=== PATIENT | male | born 1960 | race Caucasian/White ===

== ENCOUNTER 2017-01-13 23:59 | Emergency (ER) | payer OTHER ==
--- NOTE | ~2017-01-13 | CR72 ---
[facility] A Service of [facility] RADIOLOGY TEXT RESULTS PATIENT: LANDON ZHU LOCATION: [facility] : 60 UNIT #: [id number] AGE: [address]: Nan El APRN SEX: M ORDER DR: [id number] [facility] [address] [place], [place] [address] [id number] E MR#: [id number] Acc #: [id number] NAME: LANDON ZHU : 1960 SEX: M STUDY DATE/TIME: 01/14/2017 01:23 UNIT: [facility] ROOM: STUDY DESCRIPTION: CR Chest Single View Portable Attending Physician: Nan El A.P.R.N. Ordering Physician: Nan El A.P.R.N. Primary Care Physician: Bryant Car M.D. MEDICAL IMAGING REPORT This report is preliminary unless electronic signature is present EXAM Portable chest 01/14 at 01:23 INDICATIONS Cough, shortness of air and chest pain for about 1 week. History of hypertension. FINDINGS AP portable chest x-ray is compared with 09/19/2015. Cardiac and mediastinal contours are normal. Patient is status post CABG. Lungs are clear except for granulomatous calcifications. No pneumothorax. IMPRESSION No active disease. Patient is status post CABG. Dictated by... Drake Echols Jr., M.D. THIS IS AN ELECTRONICALLY VERIFIED REPORT Drake Echols Jr., M.D. at 01/14/2017 5:24 AM KANDACE/mary ann TD: 01/14/2017 05:21 JOB #: [id number] MEDICAL IMAGING REPORT Page 1 of 1 COPY
--- NOTE | ~2017-01-13 | EKG ---
PATIENT: LANDON ZHU UNIT #: [id number] Ventricular Rate: 94 BPM Atrial Rate: 94 BPM P-R Interval: 140 ms QRS Duration: 104 ms Q-T Interval: 394 ms QTC Calculation(Bezet): 492 ms P [place]: 51 degrees Calculated R [place]: 46 degrees Calculated T [place]: 49 degrees Diagnosis Line: Sinus rhythm with occasional Premature ventricular Diagnosis Line: complexes Diagnosis Line: Incomplete right bundle branch block Diagnosis Line: Prolonged QT Diagnosis Line: Abnormal ECG Diagnosis Line: When compared with ECG of 01-APR-2015 15:15, Diagnosis Line: Premature ventricular complexes are now Present Diagnosis Line: Vent. rate has increased BY 31 BPM Diagnosis Line: QT has lengthened Diagnosis Line: Confirmed by MICHAEL BINGHAM MD ([id number]) on 01/14/2017 Diagnosis Line: 4:43:21 PM INTERPRETING MD: ZACHERY MOHAN
[~2017-01-13 23:59] MED LIST: ALBUTEROL17 GM INH; ALPRAZOLAM PO; ALPRAZOLAM0.5 MG PO; ASPIRIN EC81 M1 PO; ASPIRIN81 M1 PO; ASPIRIN81 MG PO; AZITHROMYCIN250 MG PO; B-100 COMPLEX1 TAB PO; CATAPRES0.1 MG PO; CELEXA20 MG PO; CHANTIX1 DOSE-PAC; CHEWABLE ASPIRI81 MG PO; CLOBETASOL E 0.60 GM TOP; CLONIDINE PO; CLOPIDOGREL BIS75 MG PO; DOXYCYCLINE150 MG PO; DULERA 200 MCG/13 GM IH; ECOTRIN81 M1 PO; FENOFIBRATE160 MG PO; FLEXERIL PO; FLEXERIL10 MG PO; FOLIC ACID800 MCG DOB; FOLIC ACID800 MCG PO; FUROSEMIDE40 MG PO; GLUCOPHAGE500 MG; GLUCOPHAGE500 MG PO; HYDROCODON-ACE1 EAC4 PO; HYDROCODON-ACE1 EAC5 PO; HYDROCODONE-A1 UDTA3 PO; IBUPROFEN PO; IMDUR-ER30 M1 PO; K-DUR20 ME1 PO; KCL PO; KEFLEX PO; KLONOPIN0.5 MG PO; KLONOPIN1 MG PO; LASIX PO; LEVAQUIN PO; LISINOPRIL10 MG PO; LORTAB 10-5001 EACH PO; LORTAB 7.5-5001 TAB PO; LYRICA50 MG PO; MEDROL PO; MEDROL4 MG/DOSE- PO; METOPROLOL SUC100 MG PO; METOPROLOL SUCC50 MG PO; NAPROSYN500 MG PO; NEURONTIN100 MG PO; NORCO 5/325 TAB1 TAB PO; NORVASC PO; OMEPRAZOLE20 M2 PO; PANTOPRAZOLE SO40 MG PO; PHENERGAN W/CO120 ML PO; PLAVIX PO; PREDNISONE PO; PREDNISONE10 MG PO; PRILOSEC20 M1 PO; PRILOSEC20 MG PO; RONDEC PO; SIMVASTATIN20 MG PO; SPIRIVA18 MCG INH; SYMBICORT INH; TOPROL XL 50 MG50 M1 PO; TOPROL XL100 MG PO; TOPROL XL50 MG PO; TRIAMCINOLONE A15 G2 EXT; TRIGLIDE160 M1 PO; ULTRAM PO; VICODIN 5/500 T1 TAB PO; VITAMIN D5000 UNIT PO; VITAMIN D50000 UNIT PO; VOLTAREN75 MG PO; WELLBUTRIN SR PO; XANAX0.5 M1 PO; XANAX0.5 MG PO; ZESTORETIC 20-1 EAC1 PO; ZITHROMAX PO; ZOCOR20 MG PO
[2017-01-14 01:30] LABS: BASOPHIL# 0.1 X10e3 (0-0.3); BASOPHIL% 0.8 % (0-2.5); EOSINOPHIL# 0.1 X10e3 (0-0.7); EOSINOPHIL% 1.6 % (0.0-7.0); HEMATOCRIT 44.2 % (38.0-50.0); HEMOGLOBIN 14.9 gm/dL (13.0-16.0); LYMPHOCYTE# 2.4 X10e3 (1.0-3.5); LYMPHOCYTE% 26.8 % (17.0-45.0); MEAN CELL VOLUME 96.3 FL (83-96); MEAN CORPUSCULAR HEMOGLOBIN 32.5 PG (28-34); MEAN CORPUSCULAR HGB CONC 33.7 g/dL (30-36); MEAN PLATELET VOLUME 7.9 FL (6.5-11.5); MONOCYTE# 0.8 X10e3 (0-1.0); MONOCYTE% 8.3 % (3.0-12.0); NEUTROPHIL# 5.6 X10e3 (1.5-7.1); NEUTROPHIL% 62.5 % (40-75); PLATELET COUNT 182 X10e3 (140-420); RED BLOOD COUNT 4.59 X10e (3.90-5.60); RED CELL DISTRIBUTION WIDTH 13.1 % (11.0-15.5)
[2017-01-14 01:31] LABS: DIFF IND NO
[2017-01-14 01:36] LABS: INFLUENZA A NEG (NEG); INFLUENZA B NEG (NEG)
[2017-01-14 01:46] LABS: PROTHROMBIN TIME (PATIENT) 10.6 SECONDS (9.6-11.5)
[2017-01-14 01:52] LABS: POC - CKMB 1.1 ng/mL (0.0-7.9); POC - TROPONIN <0.05 ng/mL (<=0.05)
[2017-01-14 02:00] LABS: ALBUMIN SERUM 4.1 g/dL (3.5-5.0); BILIRUBIN, DIRECT 0.1 mg/dL (0.0-0.2); BILIRUBIN,INDIRECT 0.7 mg/dL (0.0-0.9); BILIRUBIN,TOTAL 0.8 mg/dL (0.2-2.0); BUN/CREATININE RATIO 17.5; CALCIUM SERUM 8.9 mg/dL (8.4-10.2); CREATININE SERUM 0.8 mg/dL (0.6-1.4); GLOM FILT RATE Estimated 99.9 mL/min (>60); POTASSIUM 3.4 mmol/L (3.5-5.1); PROTEIN TOTAL SERUM 6.9 g/dL (6.0-8.3)
[2017-01-14 02:08] LABS: URINE SOURCE CLEAN CATCH
[2017-01-14 02:30] LABS: URINE APPEARANCE CLEAR; URINE BILIRUBIN NEG (NEG); URINE BLOOD NEG (NEG); URINE COLOR YELLOW; URINE GLUCOSE NEG (NEG); URINE KETONE NEG (NEG); URINE LEUKOCYTE ESTERASE NEG (NEG); URINE NITRATE NEG (NEG); URINE PROTEIN NEG (NEG); URINE SPECIFIC GRAVITY 1.009 (1.003-1.035); URINE UROBILINOGEN 0.2 MG/DL (NEG)
[2017-01-14 02:40] LABS: CULTURE INDICATED? NO
[2017-01-14 03:18] LABS: POC - CKMB 1.4 ng/mL (0.0-7.9); POC - TROPONIN <0.05 ng/mL (<=0.05)
== END 2017-01-14 05:07 | disposition home or self-care (01) ==
LOC: CED 23:59
PROVIDERS: Nurse Practitioner
DX: J44.9 Chronic obstructive pulmonary disease, unspecified (principal); I10 Essential (primary) hypertension; E11.9 Type 2 diabetes mellitus without complications; I25.2 Old myocardial infarction; F17.210 Nicotine dependence, cigarettes, uncomplicated; Z79.899 Other long term (current) drug therapy
CPT/HCPCS: 36415; 71010; 80048; 80076; 81003; 82150; 82553; 83690; 84484; 85025; 85610; 85730; 87651; 87804; 93005; 94640; 96374; 99284; J2405

== ENCOUNTER 2017-01-27 03:31 | Emergency (ER) | payer OTHER ==
--- NOTE | ~2017-01-27 | EKG ---
PATIENT: LANDON ZHU UNIT #: [id number] Ventricular Rate: 89 BPM Atrial Rate: 89 BPM P-R Interval: 138 ms QRS Duration: 94 ms Q-T Interval: 390 ms QTC Calculation(Bezet): 474 ms P [place]: 56 degrees Calculated R [place]: 51 degrees Calculated T [place]: 49 degrees Diagnosis Line: Normal sinus rhythm Diagnosis Line: Incomplete right bundle branch block Diagnosis Line: Borderline ECG Diagnosis Line: No previous ECGs available Diagnosis Line: Confirmed by MICHAEL BINGHAM MD ([id number]) on 01/27/2017 Diagnosis Line: 6:31:31 PM INTERPRETING MD: ZACHERY MOHAN
--- NOTE | ~2017-01-27 | CR63 ---
[facility] A Service of [facility] RADIOLOGY TEXT RESULTS PATIENT: LANDON ZHU LOCATION: [facility] : 60 UNIT #: [id number] AGE: [address]: LIS SHARPE SEX: M ORDER DR: [id number] [facility] [address] [place], [place] [address] [id number] E MR#: [id number] Acc #: [id number] NAME: LANDON ZHU : 1960 SEX: M STUDY DATE/TIME: 01/27/2017 2:43 UNIT: [facility] ROOM: STUDY DESCRIPTION: CR Chest 2 View Attending Physician: Lis Sharpe Aprn Ordering Physician: Lis Sharpe Aprn Primary Care Physician: Bryant Car M.D. MEDICAL IMAGING REPORT This report is preliminary unless electronic signature is present EXAM Chest x-ray 01/27/2017. HISTORY 56-year-old male in the ED complaining of chest pain and shortness of air beginning earlier today. TECHNIQUE AP and lateral upright chest series. FINDINGS Heart size and pulmonary vascularity are normal. Postop changes CABG. The lungs are clear. No visible pulmonary infiltrate or pleural effusion. Scattered benign calcified pulmonary granulomas. No change since 01/14/2017. IMPRESSION No active disease. CABG. No change since 01/14/2017. Dictated by... Gildardo Dow M.D. THIS IS AN ELECTRONICALLY VERIFIED REPORT Gildardo Dow M.D. at 01/27/2017 5:57 AM MARGARITA/mary ann TD: 01/27/2017 03:36 JOB #: [id number] MEDICAL IMAGING REPORT Page 1 of 1 COPY
[2017-01-27 02:51] LABS: BASOPHIL# 0.1 X10e3 (0-0.3); BASOPHIL% 0.7 % (0-2.5); EOSINOPHIL# 0.2 X10e3 (0-0.7); EOSINOPHIL% 1.9 % (0.0-7.0); HEMATOCRIT 43.9 % (38.0-50.0); HEMOGLOBIN 14.9 gm/dL (13.0-16.0); LYMPHOCYTE# 2.6 X10e3 (1.0-3.5); LYMPHOCYTE% 26.7 % (17.0-45.0); MEAN CELL VOLUME 95.5 FL (83-96); MEAN CORPUSCULAR HEMOGLOBIN 32.5 PG (28-34); MEAN PLATELET VOLUME 7.9 FL (6.5-11.5); MONOCYTE# 0.8 X10e3 (0-1.0); MONOCYTE% 7.9 % (3.0-12.0); NEUTROPHIL# 6.1 X10e3 (1.5-7.1); NEUTROPHIL% 62.8 % (40-75); PLATELET COUNT 173 X10e3 (140-420); WHITE BLOOD COUNT 9.7 X10e3 (4.0-10.5)
[2017-01-27 02:52] LABS: DIFF IND NO
[2017-01-27 03:05] LABS: PARTIAL THROMBOPLASTIN TIME 26.9 SECONDS (23.5-31.3); PROTHROMBIN TIME (PATIENT) 10.7 SECONDS (9.6-11.5)
[2017-01-27 03:13] LABS: POC - TROPONIN <0.05 ng/mL (<=0.05)
[2017-01-27 03:19] LABS: ALBUMIN SERUM 4.3 g/dL (3.5-5.0); BILIRUBIN,TOTAL 0.5 mg/dL (0.2-2.0); BUN/CREATININE RATIO 16.25; CALCIUM SERUM 8.8 mg/dL (8.4-10.2); CREATININE SERUM 0.8 mg/dL (0.6-1.4); GLOM FILT RATE Estimated 99.9 mL/min (>60); POTASSIUM 3.6 mmol/L (3.5-5.1); PROTEIN TOTAL SERUM 6.8 g/dL (6.0-8.3)
== END 2017-01-27 04:28 | disposition home or self-care (01) ==
LOC: CED 03:31
PROVIDERS: Nurse Practitioner Family
DX: R07.89 Other chest pain (principal); I10 Essential (primary) hypertension; E78.5 Hyperlipidemia, unspecified; J45.909 Unspecified asthma, uncomplicated; F17.210 Nicotine dependence, cigarettes, uncomplicated; Z95.1 Presence of aortocoronary bypass graft; Z79.899 Other long term (current) drug therapy; Z79.82 Long term (current) use of aspirin
CPT/HCPCS: 36415; 71020; 80053; 82553; 84484; 85025; 85610; 85730; 93005; 94640; 96374; 96375; 99284; J1885; J2405

== ENCOUNTER 2017-01-29 23:59 | Observation (INO) | payer OTHER ==
--- NOTE | ~2017-01-29 | CT15 ---
[facility] A Service of [facility] & [facility] RADIOLOGY TEXT RESULTS PATIENT: LANDON ZHU LOCATION: [facility] 549-01 : 60 UNIT #: [id number] AGE: [address]: Terry Ashley MD SEX: M ORDER DR: [id number] [facility] [address]. [place], [place] [address] [id number] I MR#: [id number] Acc #: [id number] NAME: LANDON ZHU : 1960 SEX: M STUDY DATE/TIME: 01/30/2017 12:43 UNIT: [facility] ROOM: [facility] STUDY DESCRIPTION: CT Angio Chest Attending Physician: Terry Ashley M.D. Ordering Physician: Dashawn Hoyt M.D. Primary Care Physician: Bryant Car M.D. MEDICAL IMAGING REPORT This report is preliminary unless electronic signature is present EXAM CT angiography chest 01/30/2017 HISTORY Hypertension, diabetes. Prior history stroke, TIA. Left-sided chest pain for 6 days. Evaluate aorta. COMPARISON STUDIES CT angiogram of the chest dated 11/14/2013. TECHNIQUE Patient received 100 mL Isovue-370 today. Multiple 3-D reconstructions performed through the aorta. This CT exam was performed with one or more of the following radiation dose reduction techniques: automatic exposure control, adjustment of mA and/or kV according to patient size, and iterative reconstruction. FINDINGS Thyroid unremarkable. Mild bilateral symmetric gynecomastia, stable. No axillary, mediastinal or hilar adenopathy. Status post median sternotomy and CABG. Heart normal in size. No pleural effusions. Please see yesterday's dedicated CT abdomen and pelvis for full discussion of findings below diaphragm. Visualized portions of liver notable for small hypodense focus in segment 5 of the liver, most likely small hepatic cysts. More conspicuous than on a study of October 2014 but present on prior study. No suspicious hepatic parenchymal abnormality is seen. The gallbladder, spleen, pancreas, adrenal glands and kidneys unremarkable in visualized extent. The esophagus, stomach, visualized small bowel and colon are unremarkable. The pulmonary parenchyma shows centrilobular emphysema. Multiple calcified granulomata. Linear scarring medial segment right middle lobe. Mild bronchial wall prominence in the STS. [facility] A Service of [facility] & [facility] RADIOLOGY TEXT RESULTS PATIENT: LANDON ZHU LOCATION: [facility] 549-01 : 60 UNIT #: [id number] AGE: [address]: Terry Ashley MD SEX: M ORDER DR: bilateral lower lobes, similar or slightly less pronounced than on prior examination, probably reflecting components of chronic underlying bronchitis. No suspicious nodule. No evidence of pneumonia or pulmonary edema. The bony structures show no acute bony abnormality. VASCULAR ANATOMY: This examination was not tailored for assessment of the pulmonary arteries. Pulmonary arteries are relatively well opacified and there is no indication of pulmonary thromboembolic disease. The aorta is normal in caliber. No dissection. The great vessel origins are patent. Proximal vertebral and common carotid arteries unremarkable. The celiac axis is patent. There is moderate narrowing of the proximal superior mesenteric artery due to eccentric atherosclerotic plaque. Narrowing is on the order of approximately 44%. Given differences in CT technique, this is probably not significantly changed from 2014. There appear to be single renal arteries bilaterally. Mild atherosclerotic luminal narrowing in the proximal right renal artery. Visualized left renal artery unremarkable. IMPRESSION 1. No aortic aneurysm or dissection. Visualized aortic branch vessels are patent. Moderate, approximately 44% luminal narrowing in proximal superior mesenteric artery secondary to eccentric atherosclerotic plaque. Similar appearance in 2014. 2. Although the study was not tailored for assessment of the pulmonary arteries. Pulmonary arteries are well opacified and there is no indication of pulmonary thromboembolic disease. 3. Status post median sternotomy and CABG. 4. Underlying centrilobular emphysema. Mild bronchial wall prominence in the utt-li-csrdl lung zones, likely reflecting components of chronic bronchitis. 5. Calcified granulomata. No suspicious nodule. 6. No acute-appearing abnormality in the upper abdomen. See details above. See yesterday's dedicated CT abdomen and pelvis for further assessment of findings below diaphragm. Dictated by... Richie Fishman M.D. THIS IS AN ELECTRONICALLY VERIFIED REPORT Richie Fishman M.D. at 01/31/2017 10:49 PM PEDRO/dominick TD: 01/30/2017 22:14 JOB #: [id number] MEDICAL IMAGING REPORT Page 1 of 1 COPY
--- NOTE | ~2017-01-29 | CR72 ---
[facility] A Service of [facility] & [facility] RADIOLOGY TEXT RESULTS PATIENT: LANDON ZHU LOCATION: [facility] : 60 UNIT #: [id number] AGE: [address]: Irma Prater MD SEX: M ORDER DR: [id number] [facility] [address] [place], [place] [address] [id number] I MR#: [id number] Acc #: [id number] NAME: LANDON ZHU : 1960 SEX: M STUDY DATE/TIME: 01/29/2017 22:43 UNIT: [facility] ROOM: 09400 STUDY DESCRIPTION: CR Chest Single View Portable Attending Physician: Irma Prater M.D. Ordering Physician: Dashawn Hoyt M.D. Primary Care Physician: Bryant Car M.D. MEDICAL IMAGING REPORT This report is preliminary unless electronic signature is present EXAM AP portable chest, 01/29/2017 HISTORY 56-year-old male in the ED complaining of 2-day history of left side chest pain, shortness of air and nausea. Past history of CABG surgery. TECHNIQUE AP portable upright chest x-ray. FINDINGS No active disease. Postop CABG. Heart size and pulmonary vascularity are normal. The lungs are clear. No visible pulmonary infiltrate or pleural effusion. Benign calcified granulomas in the right upper lung. No change since 01/27/2017. IMPRESSION No active disease. CABG. Dictated by... Gildardo Dow M.D. THIS IS AN ELECTRONICALLY VERIFIED REPORT Gildardo Dow M.D. at 01/30/2017 6:01 AM MARGARITA/alisha TD: 01/30/2017 02:56 JOB #: [id number] MEDICAL IMAGING REPORT [facility] A Service of [facility] & [facility] RADIOLOGY TEXT RESULTS PATIENT: LANDON ZHU LOCATION: [facility] : 60 UNIT #: [id number] AGE: [address]: Irma Prater MD SEX: M ORDER DR: Page 1 of 1 COPY
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
--- NOTE | ~2017-01-29 | CT2 ---
[facility] A Service of [facility] RADIOLOGY TEXT RESULTS PATIENT: LANDON ZHU LOCATION: [facility] 35833-03 : [birth year] UNIT #: [id number] AGE: [address]: Irma Prater MD SEX: M ORDER DR: [id number] [facility] [address]. [place], [place] [address] [id number] I MR#: [id number] Acc #: [id number] NAME: LANDON ZHU : 1960 SEX: M STUDY DATE/TIME: 01/29/2017 23:37 UNIT: [facility] ROOM: 73799 STUDY DESCRIPTION: CT Abd and Pelv W Cont Attending Physician: Irma Prater M.D. Ordering Physician: Dashawn Hoyt M.D. Primary Care Physician: Bryant Car M.D. MEDICAL IMAGING REPORT This report is preliminary unless electronic signature is present EXAM CT abdomen and pelvis with contrast, 01/29/2017 HISTORY 56-year-old male in the ED complaining of 2-day history of cramping lower abdominal pain, nausea and dizziness. TECHNIQUE CT examination of the abdomen and pelvis was performed with IV contrast. GI contrast was not ordered. This CT exam was performed with one or more of the following radiation dose reduction techniques: automatic exposure control, adjustment of mA and/or kV according to patient size, and iterative reconstruction. FINDINGS ABDOMEN: Liver, pancreas and spleen are normal in size and appearance, with the exception of 1 or 2 probable tiny benign cysts within the liver. Nondistended gallbladder. No bile duct dilatation. Both kidneys are negative with no evidence of urinary obstruction. Normal-caliber abdominal aorta. Small bowel and colon are normal in caliber and appearance, as imaged. The appendix is normal. PELVIS FINDINGS: Bladder, prostate and rectum are within normal limits. No significant inguinal hernia or abdominal wall hernia. Limited lung base images show no active disease in the lower chest. IMPRESSION Negative CT examination of the abdomen and pelvis. No significant change [facility] A Service of [facility] RADIOLOGY TEXT RESULTS PATIENT: LANDON ZHU LOCATION: [facility] [id number] : [birth year] UNIT #: [id number] AGE: [address]: Irma Prater MD SEX: M ORDER DR: since 10/30/2014. Dictated by... Gildardo Dow M.D. THIS IS AN ELECTRONICALLY VERIFIED REPORT Gildardo Dow M.D. at 01/30/2017 6:01 AM MARGARITA/alisha TD: 01/30/2017 03:25 JOB #: [id number] MEDICAL IMAGING REPORT Page 1 of 1 COPY
--- NOTE | ~2017-01-29 | EKG ---
PATIENT: LANDON ZHU UNIT #: [id number] Ventricular Rate: 79 BPM Atrial Rate: 79 BPM P-R Interval: 140 ms QRS Duration: 94 ms Q-T Interval: 408 ms QTC Calculation(Bezet): 467 ms P [place]: 54 degrees Calculated R [place]: 33 degrees Calculated T [place]: 32 degrees Diagnosis Line: Sinus rhythm with occasional Premature ventricular Diagnosis Line: complexes Diagnosis Line: Otherwise normal ECG Diagnosis Line: When compared with ECG of 27-JAN-2017 00:06, Diagnosis Line: Premature ventricular complexes are now Present Diagnosis Line: Confirmed by JORGE L WALKER MD ([id number]) on Diagnosis Line: 01/30/2017 10:21:09 PM INTERPRETING MD: IDRIS
--- NOTE | ~2017-01-29 | EKG ---
PATIENT: LANDON ZHU UNIT #: [id number] Ventricular Rate: 94 BPM Atrial Rate: 94 BPM P-R Interval: 144 ms QRS Duration: 92 ms Q-T Interval: 374 ms QTC Calculation(Bezet): 467 ms P [place]: 56 degrees Calculated R [place]: 53 degrees Calculated T [place]: 41 degrees Diagnosis Line: Normal sinus rhythm Diagnosis Line: Normal ECG Diagnosis Line: When compared with ECG of 29-JAN-2017 23:00, Diagnosis Line: (unconfirmed) Diagnosis Line: Premature ventricular complexes are no longer Diagnosis Line: Present Diagnosis Line: Confirmed by JORGE L WALKER MD ([id number]) on Diagnosis Line: 01/30/2017 10:26:32 PM INTERPRETING MD: IDRIS
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
[2017-01-29 16:34] LABS: BASOPHIL% 0.4 % (0-2.5); EOSINOPHIL# 0.1 X10e3 (0-0.7); EOSINOPHIL% 0.5 % (0.0-7.0); HEMATOCRIT 47.2 % (38.0-50.0); HEMOGLOBIN 15.8 gm/dL (13.0-16.0); LYMPHOCYTE# 1.7 X10e3 (1.0-3.5); LYMPHOCYTE% 15.4 % (17.0-45.0); MEAN CELL VOLUME 96.3 FL (83-96); MEAN CORPUSCULAR HEMOGLOBIN 32.3 PG (28-34); MEAN CORPUSCULAR HGB CONC 33.5 g/dL (30-36); MEAN PLATELET VOLUME 7.8 FL (6.5-11.5); MONOCYTE# 0.7 X10e3 (0-1.0); MONOCYTE% 6.1 % (3.0-12.0); NEUTROPHIL# 8.6 X10e3 (1.5-7.1); NEUTROPHIL% 77.6 % (40-75); PLATELET COUNT 195 X10e3 (140-420); RED CELL DISTRIBUTION WIDTH 13.2 % (11.0-15.5)
[2017-01-29 16:37] LABS: DIFF IND NO
[2017-01-29 16:58] LABS: ALBUMIN SERUM 4.5 g/dL (3.5-5.0); BILIRUBIN, DIRECT 0.1 mg/dL (0.0-0.2); BILIRUBIN,INDIRECT 0.5 mg/dL (0.0-0.9); BILIRUBIN,TOTAL 0.6 mg/dL (0.2-2.0); BUN/CREATININE RATIO 14.44; CALCIUM SERUM 9.4 mg/dL (8.4-10.2); CREATININE SERUM 0.9 mg/dL (0.6-1.4); GLOM FILT RATE Estimated 95.1 mL/min (>60); POTASSIUM 4.2 mmol/L (3.5-5.1); PROTEIN TOTAL SERUM 7.5 g/dL (6.0-8.3)
[2017-01-29 22:54] LABS: %MB 2.8 % (0.0-4.0); MB 2.7 ng/ml
[2017-01-29 23:12] LABS: URINE SOURCE CLEAN CATCH
[2017-01-29 23:19] LABS: URINE APPEARANCE CLEAR; URINE BILIRUBIN NEG (NEG); URINE BLOOD NEG (NEG); URINE COLOR YELLOW; URINE GLUCOSE NEG (NEG); URINE KETONE NEG (NEG); URINE LEUKOCYTE ESTERASE NEG (NEG); URINE NITRATE NEG (NEG); URINE PROTEIN NEG (NEG); URINE SPECIFIC GRAVITY 1.013 (1.003-1.035); URINE UROBILINOGEN 0.2 MG/DL (NEG)
[2017-01-29 23:27] LABS: CULTURE INDICATED? NO
[2017-01-30 04:25] LABS: BASOPHIL% 0.1 % (0-2.5); EOSINOPHIL% 0.1 % (0.0-7.0); HEMATOCRIT 46.2 % (38.0-50.0); HEMOGLOBIN 15.3 gm/dL (13.0-16.0); LYMPHOCYTE# 0.5 X10e3 (1.0-3.5); LYMPHOCYTE% 3.7 % (17.0-45.0); MEAN CELL VOLUME 96.5 FL (83-96); MEAN CORPUSCULAR HGB CONC 33.1 g/dL (30-36); MONOCYTE# 0.1 X10e3 (0-1.0); MONOCYTE% 0.7 % (3.0-12.0); NEUTROPHIL# 12.2 X10e3 (1.5-7.1); NEUTROPHIL% 95.4 % (40-75); PLATELET COUNT 172 X10e3 (140-420); RED BLOOD COUNT 4.79 X10e (3.90-5.60); RED CELL DISTRIBUTION WIDTH 13.3 % (11.0-15.5); WHITE BLOOD COUNT 12.8 X10e3 (4.0-10.5)
[2017-01-30 04:26] LABS: DIFF IND NO
[2017-01-30 04:47] LABS: BUN/CREATININE RATIO 16.66; CALCIUM SERUM 9.2 mg/dL (8.4-10.2); CREATININE SERUM 0.9 mg/dL (0.6-1.4); GLOM FILT RATE Estimated 95.1 mL/min (>60); POTASSIUM 4.3 mmol/L (3.5-5.1)
[2017-01-30 05:20] LABS: %MB 3.6 % (0.0-4.0); MB 2.2 ng/ml
[2017-01-30 10:59] LABS: %MB 3.5 % (0.0-4.0); MB 2.1 ng/ml
[2017-01-30 12:48] LABS: %MB 3.8 % (0.0-4.0); MB 2.6 ng/ml
[2017-01-30 19:49] LABS: AMPHETAMINE NEG (NEG); BARBITURATES NEG (NEG); BENZODIAZEPINES NEG (NEG); COCAINE NEG (NEG); MARIJUANA NEG (NEG); OPIATES POS (NEG); TRICYCLIC ANTIDEPRESSANTS NEG (NEG); U METHADONE NEG (NEG)
[2017-01-31 06:22] LABS: ALBUMIN SERUM 4.1 g/dL (3.5-5.0); BILIRUBIN,TOTAL 0.9 mg/dL (0.2-2.0); CREATININE SERUM 0.8 mg/dL (0.6-1.4); GLOM FILT RATE Estimated 99.9 mL/min (>60); POTASSIUM 4.1 mmol/L (3.5-5.1); PROTEIN TOTAL SERUM 6.7 g/dL (6.0-8.3)
[2017-02-01] MEDS ORDERED: FLOMAX0.4 M1 PO (09:52)
[2017-02-01] MEDS ORDERED: CEFTIN PO (09:52)
[2017-02-01] MEDS ORDERED: PREDNISONE PO (09:53)
[2017-02-01] MEDS ORDERED: SYMBICORT INH (09:53)
== END 2017-02-01 13:15 | disposition home or self-care (01) ==
LOC: CED 23:59 → CEDOF 01-30 02:00 → C5B 01-30 13:28 → CEDOF 01-30 16:41 → C5B 01-30 16:44
PROVIDERS: Emergency Medicine; Family Medicine
DX: R07.89 Other chest pain (principal); I51.7 Cardiomegaly; I08.3 Combined rheumatic disorders of mitral, aortic and tricuspid valves; I25.10 Atherosclerotic heart disease of native coronary artery without angina pectoris; Z95.1 Presence of aortocoronary bypass graft; I25.2 Old myocardial infarction; I49.3 Ventricular premature depolarization; I51.89 Other ill-defined heart diseases; J84.10 Pulmonary fibrosis, unspecified; K55.1 Chronic vascular disorders of intestine; I10 Essential (primary) hypertension; E78.5 Hyperlipidemia, unspecified; J44.1 Chronic obstructive pulmonary disease with (acute) exacerbation; F41.9 Anxiety disorder, unspecified; G89.4 Chronic pain syndrome; N40.0 Benign prostatic hyperplasia without lower urinary tract symptoms; E11.9 Type 2 diabetes mellitus without complications; Z79.84 Long term (current) use of oral hypoglycemic drugs; E66.9 Obesity, unspecified; Z68.41 Body mass index [BMI] 40.0-44.9, adult; F17.200 Nicotine dependence, unspecified, uncomplicated; Z79.02 Long term (current) use of antithrombotics/antiplatelets; Z79.899 Other long term (current) drug therapy; Z79.82 Long term (current) use of aspirin
CPT/HCPCS: 36415; 71010; 71275; 74177; 80048; 80053; 80061; 80076; 80307; 81003; 82150; 82550; 82553; 82607; 82652; 82947; 83036; 83690; 83735; 84443; 84484; 85025; 93005; 93306; 94640; 94760; 96374; 96375; 96376; 99285; 99406; G0378; J0456; J1885; J2270; J2405; J2920; J2930; Q9967

== ENCOUNTER 2017-06-20 21:30 | Observation (INO) | payer OTHER ==
[~2017-06-20] VITALS: Ht 180.3 cm; Wt 99.3 kg
--- NOTE | ~2017-06-20 | EKG ---
PATIENT: LANDON ZHU UNIT #: [id number] Ventricular Rate: 71 BPM Atrial Rate: 71 BPM P-R Interval: 160 ms QRS Duration: 90 ms Q-T Interval: 420 ms QTC Calculation(Bezet): 456 ms P [place]: 85 degrees Calculated R [place]: 45 degrees Calculated T [place]: 37 degrees Diagnosis Line: Sinus rhythm with occasional Premature ventricular Diagnosis Line: complexes Diagnosis Line: Otherwise normal ECG Diagnosis Line: When compared with ECG of 20-JUN-2017 21:39, Diagnosis Line: (unconfirmed) Diagnosis Line: Premature ventricular complexes are now Present Diagnosis Line: Confirmed by EMMY JOHNSON MD ([id number]) on Diagnosis Line: 06/22/2017 11:33:23 AM INTERPRETING MD: ELIZABETH MOHAN
--- NOTE | ~2017-06-20 | CR72 ---
[facility] A Service of [facility] RADIOLOGY TEXT RESULTS PATIENT: LANDON ZHU LOCATION: [facility] [address]600-92 : [birth year] UNIT #: [id number] AGE: [address]: Dashawn Lawton MD SEX: M ORDER DR: [id number] [facility] [address] [place], [place] [address] [id number] I MR#: [id number] Acc #: [id number] NAME: LANDON ZHU : 1960 SEX: M STUDY DATE/TIME: 06/20/2017 22:44 UNIT: [facility] ROOM: 44770 STUDY DESCRIPTION: CR Chest Single View Portable Attending Physician: Dashawn Lawton M.D. Ordering Physician: Magdaleno York D.O. Primary Care Physician: Bryant Car M.D. MEDICAL IMAGING REPORT This report is preliminary unless electronic signature is present EXAM Portable chest, 06/20 22:44 hours INDICATION Tachycardia and palpitations today with left arm numbness and tingling and chest pain. FINDINGS AP portable chest is compared with 02/20/2017. Cardiac and mediastinal contours are normal. Patient is status post CABG. Lungs are clear except for granulomatous calcification. No pneumothorax. IMPRESSION No active disease. Dictated by... Drake Echols Jr., M.D. THIS IS AN ELECTRONICALLY VERIFIED REPORT Drake Echols Jr., M.D. at 06/22/2017 1:52 AM KANDACE/mark TD: 06/21/2017 11:49 JOB #: [id number] MEDICAL IMAGING REPORT Page 1 of 1 COPY
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
--- NOTE | ~2017-06-20 | EKG ---
PATIENT: LANDON ZHU UNIT #: [id number] Ventricular Rate: 87 BPM Atrial Rate: 87 BPM P-R Interval: 134 ms QRS Duration: 88 ms Q-T Interval: 378 ms QTC Calculation(Bezet): 454 ms P [place]: 47 degrees Calculated R [place]: 42 degrees Calculated T [place]: 33 degrees Diagnosis Line: Normal sinus rhythm Diagnosis Line: Normal ECG Diagnosis Line: When compared with ECG of 30-JAN-2017 07:49, Diagnosis Line: No significant change was found Diagnosis Line: Confirmed by EMMY JOHNSON MD ([id number]) on Diagnosis Line: 06/22/2017 11:32:38 AM INTERPRETING MD: ELIZABETH MOHAN
[~2017-06-20 21:30] MED LIST changes: +CEFTIN PO; +FLOMAX0.4 M1 PO
[2017-06-20] MEDS ORDERED: HYDROCODON-ACE1 EAC5 PO (21:53)
[2017-06-20 23:05] LABS: BASOPHIL% 0.6 % (0-2.5); EOSINOPHIL# 0.2 X10e3 (0-0.7); EOSINOPHIL% 3.1 % (0.0-7.0); HEMATOCRIT 44.1 % (38.0-50.0); HEMOGLOBIN 15.2 gm/dL (13.0-16.0); LYMPHOCYTE# 1.8 X10e3 (1.0-3.5); LYMPHOCYTE% 25.4 % (17.0-45.0); MEAN CELL VOLUME 96.3 FL (83-96); MEAN CORPUSCULAR HEMOGLOBIN 33.2 PG (28-34); MEAN CORPUSCULAR HGB CONC 34.5 g/dL (30-36); MEAN PLATELET VOLUME 7.4 FL (6.5-11.5); MONOCYTE# 0.5 X10e3 (0-1.0); MONOCYTE% 7.2 % (3.0-12.0); NEUTROPHIL# 4.4 X10e3 (1.5-7.1); NEUTROPHIL% 63.7 % (40-75); PLATELET COUNT 164 X10e3 (140-420); RED BLOOD COUNT 4.58 X10e (3.90-5.60); RED CELL DISTRIBUTION WIDTH 13.1 % (11.0-15.5)
[2017-06-20 23:06] LABS: DIFF IND NO
[2017-06-20 23:11] LABS: POC - CKMB 1.6 ng/mL (0.0-7.9); POC - TROPONIN <0.05 ng/mL (<=0.05)
[2017-06-20 23:19] LABS: PROTHROMBIN TIME (PATIENT) 11.1 SECONDS (10.0-11.7)
[2017-06-20 23:30] LABS: ALBUMIN SERUM 4.1 g/dL (3.5-5.0); BILIRUBIN, DIRECT 0.1 mg/dL (0.0-0.2); BILIRUBIN,INDIRECT 0.2 mg/dL (0.0-0.9); BILIRUBIN,TOTAL 0.3 mg/dL (0.2-2.0); BUN/CREATININE RATIO 13.33; CALCIUM SERUM 8.8 mg/dL (8.4-10.2); CREATININE SERUM 0.9 mg/dL (0.6-1.4); GLOM FILT RATE Estimated 95.1 mL/min (>60); POTASSIUM 3.9 mmol/L (3.5-5.1); PROTEIN TOTAL SERUM 6.8 g/dL (6.0-8.3)
[2017-06-21] MEDS ORDERED: PROAIR RESPICL90 MCG PO (01:38)
[2017-06-21] MEDS ORDERED: SYMBICORT INH (01:39)
[2017-06-21] MEDS ORDERED: VITAMIN D250000 UNIT DOB (01:39)
[2017-06-21] MEDS ORDERED: OMNICAP TABLET0.4 MG (01:40)
[2017-06-21] MEDS ORDERED: LORTAB 10 MG-3473 ML PO (01:41)
[2017-06-21] MEDS ORDERED: NEURONTIN300 MG PO (01:42)
[2017-06-21 01:45] LABS: POC - CKMB 1.3 ng/mL (0.0-7.9); POC - TROPONIN <0.05 ng/mL (<=0.05)
[2017-06-21 06:23] LABS: BUN/CREATININE RATIO 17.14; CALCIUM SERUM 8.5 mg/dL (8.4-10.2); CREATININE SERUM 0.7 mg/dL (0.6-1.4); GLOM FILT RATE Estimated 105.5 mL/min (>60)
== END 2017-06-21 13:40 | disposition home or self-care (01) ==
LOC: CED 21:30 → CEDOF 06-21 01:17 → CED 06-21 01:56 → CEDOF 06-21 13:40
PROVIDERS: Emergency Medicine; Internal Medicine Cardiovascular Disease
DX: R07.89 Other chest pain (principal); I25.10 Atherosclerotic heart disease of native coronary artery without angina pectoris; I25.2 Old myocardial infarction; Z95.1 Presence of aortocoronary bypass graft; I10 Essential (primary) hypertension; E78.5 Hyperlipidemia, unspecified; J44.9 Chronic obstructive pulmonary disease, unspecified; G47.33 Obstructive sleep apnea (adult) (pediatric); G89.4 Chronic pain syndrome; F17.210 Nicotine dependence, cigarettes, uncomplicated
CPT/HCPCS: 36415; 71010; 80048; 80076; 82553; 84484; 85025; 85610; 85730; 93005; 99285; G0378